=== PATIENT | female | born 1975 | race Caucasian/White ===

== ENCOUNTER 2017-04-27 16:06 | Observation (INO) | payer BC ==
[~2017-04-27] VITALS: Ht 162.6 cm; Wt 75.7 kg
== END 2017-04-27 16:35 | disposition left against medical advice (07) ==
LOC: L&D 16:06
PROVIDERS: ADMIT Specialist; ATTEND Specialist
DX: O42.90 Premature rupture of membranes, unspecified as to length of time between rupture and onset of labor, unspecified weeks of gestation (principal); Z3A.00 Weeks of gestation of pregnancy not specified
CPT/HCPCS: 99281; G0378